=== PATIENT | female | born 1950 | race Caucasian/White ===

== ENCOUNTER → 2017-07-08 | Outpatient (CLI) | payer MEDICARE ==
[~2017-07-08] MED LIST: GADOBUTROL 7.5 MMOL/7.5 ML PFS ONE
== END ==
LOC: CFH 14:24
PROVIDERS: ATTEND Orthopaedic Surgery Foot and Ankle Surgery
DX: M17.12 Unilateral primary osteoarthritis, left knee (principal); R60.0 Localized edema
CPT/HCPCS: 73720; 73721; A9585

== ENCOUNTER → 2017-09-20 | Outpatient (CLI) | payer MEDICARE | LOC: CFH 09:32 → EDSTATUS 10:45 | PROVIDERS: ATTEND Family Medicine | DX: Z12.31 Encounter for screening mammogram for malignant neoplasm of breast (principal) | CPT/HCPCS: 77067 ==

== ENCOUNTER 2019-11-19 11:49 | Emergency (ER) | payer MEDICARE ==
[~2019-11-19] VITALS: Ht 160 cm; Wt 79.8 kg
--- NOTE | 2019-11-19 12:04 | NUR ---
r mid abdpain in side x1 month. this am radiates into groin and r leg. uti 3 wksago, tx w amoxicillin and sx went away. no n/v/d. last bm this am. abd soft to palp. 07/13 current, worse when movingor laying on side. call hernadez/awaiting md. as
--- NOTE | 2019-11-19 12:08 | NUR ---
pt sts fam hx of gall bladder issues and "i vomit at least once a week from food i can't digest". as
--- NOTE | 2019-11-19 12:19 | NUR ---
PA WAS IN ROOM FOR EVAL. UA WALKED TO LAB. LAB AT BEDSIDE. CALL HAI IN REACH.
--- NOTE | 2019-11-19 12:35 | NUR ---
REPORT RECEIVED FROM SANDRA DAUGHERTY.
[2019-11-19 12:37] LABS: BASOPHILS # (AUTO) 0.05 x10^3/uL (0-0.1); BASOPHILS % (AUTO) 1 % (0-1); EOSINOPHILS # (AUTO) 0.07 x10^3/uL (0-0.4); EOSINOPHILS % (AUTO) 1 % (1-7); LYMPHOCYTES # (AUTO) 1.64 x10^3/uL (1-3.4); LYMPHOCYTES % (AUTO) 26 % (22-44); MD NO; MEAN CORPUSCULAR HEMOGLOBIN 30.9 pg (27.0-34.8); MEAN CORPUSCULAR HGB CONC 33.6 g/dL (32.4-35.8); MEAN PLATELET VOLUME 8.7 fL (7.4-10.4); MONOCYTES # (AUTO) 0.47 x10^3/uL (0.2-0.8); MONOCYTES % (AUTO) 8 % (2-9); NEUTROPHILS # (AUTO) 4.04 x10^3/uL (1.8-6.8); NEUTROPHILS % (AUTO) 65 % (42-75); PLATELET COUNT 218 x10^3/uL (130-400); RED BLOOD COUNT 5.08 x10^6/uL (3.82-5.3); RED CELL DISTRIBUTION WIDTH 13.4 % (9.6-15.2)
[2019-11-19 12:38] LABS: MICROSCOPIC NOT IND
[2019-11-19 12:45] LABS: ALANINE AMINOTRANSFERASE 22 U/L (12-78); ALBUMIN 3.5 g/dL (3.4-5.0); ANION GAP 4 mmol/L (5-15); CALCIUM 8.7 mg/dL (8.5-10.1); CHLORIDE 110 mmol/L (98-107)
[2019-11-19 12:48] LABS: ALKALINE PHOSPHATASE 98 U/L (45-117); BILIRUBIN,TOTAL 0.6 mg/dL (0.2-1.0); CREATININE 0.92 mg/dL (0.55-1.02); TOTAL PROTEIN 6.5 g/dL (6.4-8.2)
[2019-11-19 13:35] VITALS: BP 155/61
--- NOTE | 2019-11-19 13:36 | NUR ---
PT RESTING IN [facility]. PT'S AOX4. RESPS EVEN AND UNLABORED. BP/SPO2 MONITORS IN PLACE. CALL LIGHT WITHIN REACH.
--- NOTE | 2019-11-19 15:00 | NUR ---
Patient given discharge instructions and they have confirmed that they understand the instructions. Patient ambulatory with steady gait.
== END 2019-11-19 15:01 | disposition home or self-care (01) ==
LOC: ED 14:51
DX: K38.8 Other specified diseases of appendix (principal)
CPT/HCPCS: 36415; 74176; 80053; 81003; 83690; 85025; 99284

== ENCOUNTER 2019-11-27 11:49 | Day surgery (SDC) | payer MEDICARE ==
[~2019-11-27] VITALS: Ht 160 cm; Wt 77.7 kg
[~2019-11-27 11:49] MED LIST changes: +FENTANYL PF 100 MCG/2ML ONE; -GADOBUTROL 7.5 MMOL/7.5 ML PFS ONE; +MIDAZOLAM 1 MG/ML, 2ML ONE
[2019-11-27] MEDS ORDERED: LACTATED RINGERS 1,000 ML IV SCH (12:08)
[2019-11-27] MEDS ORDERED: BUPIVACAINE/PF-EPI 0.5% 1:200K ONE (12:17)
[2019-11-27] MEDS ORDERED: FENTANYL PF 100 MCG/2ML IV PRN (12:30)
[2019-11-27] MEDS ORDERED: CHLORHEXIDINE 15 ML UDC MM ONE (12:30)
[2019-11-27] MEDS ORDERED: MEPERIDINE/PF 25MG/0.5ML IVPush PRN (12:30)
[2019-11-27] MEDS ORDERED: PLEASE ENTER HEIGHT AND WEIGHT MC SCH (12:30)
[2019-11-27] MEDS ORDERED: PROMETHAZINE 25 MG/ML, 1ML IVPush PRN (12:30)
[2019-11-27] MEDS ORDERED: HYDROcodone/APAP 7.5-325MG/15ML UDC PO PRN (12:30)
[2019-11-27] MEDS ORDERED: morphine SULFATE 10 MG/ML, 1ML IVPush PRN (12:30)
[2019-11-27 12:32] VITALS: BP 134/82
[2019-11-27] MEDS ORDERED: CHLORHEXIDINE 15 ML UDC ONE (12:47)
[2019-11-27] MEDS ORDERED: SCOPOLAMINE 1MG PATCH TD ONE (12:48)
[2019-11-27] MEDS ORDERED: NONE PER PT (12:56)
[2019-11-27] MEDS ORDERED: LUTEIN PO (12:58)
[2019-11-27] MEDS ORDERED: SCOPOLAMINE 1MG PATCH TD SCH (13:00)
[2019-11-27] MEDS ORDERED: SUCCINYLCHOLINE 20 MG/ML, 10ML ONE (13:10)
[2019-11-27] MEDS ORDERED: SUGAMMADEX 200 MG/2 ML IVPush ONE (13:10)
[2019-11-27] MEDS ORDERED: PROPOFOL 10 MG/ML, 100ML IV ONE (13:10)
[2019-11-27] MEDS ORDERED: DEXAMETHASONE 4 MG/ML, 1ML ONE (13:10)
[2019-11-27] MEDS ORDERED: ONDANSETRON 2MG/ML, 2ML ONE (13:10)
[2019-11-27] MEDS ORDERED: ROCURONIUM 10 MG/ML,10ML ONE (13:10)
[2019-11-27] MEDS ORDERED: EPHEDRINE 50 MG/ML, 1ML ONE (13:10)
== END 2019-11-27 16:40 | disposition home or self-care (01) ==
LOC: OUT 11:49
PROVIDERS: ATTEND Surgery
DX: D37.3 Neoplasm of uncertain behavior of appendix (principal); Z79.899 Other long term (current) drug therapy; Z88.0 Allergy status to penicillin; Z83.3 Family history of diabetes mellitus; Z80.9 Family history of malignant neoplasm, unspecified
CPT/HCPCS: 44970; 88304; 93005; J0330; J1100; J2250; J2405; J2704; J3010; J7120

== ENCOUNTER 2020-01-11 19:18 | Emergency (ER) | payer MEDICARE ==
[~2020-01-11] VITALS: Ht 160 cm; Wt 79.6 kg
[~2020-01-11 19:18] MED LIST changes: -FENTANYL PF 100 MCG/2ML ONE; +LUTEIN PO; -MIDAZOLAM 1 MG/ML, 2ML ONE; +NONE PER PT
[2020-01-11 19:25] VITALS: BP 147/90
[2020-01-11] MEDS ORDERED: SODIUM CHLORIDE FLUSH 10ML SYR IVF ONE ×2 (20:00→21:00)
[2020-01-11 20:44] LABS: BASOPHILS # (AUTO) 0.07 x10^3/uL (0-0.1); BASOPHILS % (AUTO) 1 % (0-1); EOSINOPHILS # (AUTO) 0.07 x10^3/uL (0-0.4); EOSINOPHILS % (AUTO) 1 % (1-7); LYMPHOCYTES # (AUTO) 1.95 x10^3/uL (1-3.4); LYMPHOCYTES % (AUTO) 28 % (22-44); MD NO; MEAN CORPUSCULAR HEMOGLOBIN 31.1 pg (27.0-34.8); MEAN CORPUSCULAR HGB CONC 33.9 g/dL (32.4-35.8); MEAN PLATELET VOLUME 8.3 fL (7.4-10.4); MONOCYTES # (AUTO) 0.46 x10^3/uL (0.2-0.8); MONOCYTES % (AUTO) 7 % (2-9); NEUTROPHILS # (AUTO) 4.49 x10^3/uL (1.8-6.8); NEUTROPHILS % (AUTO) 64 % (42-75); PLATELET COUNT 232 x10^3/uL (130-400); RED BLOOD COUNT 5.01 x10^6/uL (3.82-5.3); RED CELL DISTRIBUTION WIDTH 13.3 % (9.6-15.2)
--- NOTE | 2020-01-11 20:53 | NUR ---
PT BACK TO [facility] FROM [facility]. UA COLLECTED, SENT TO LAB. REPORT GIVEN TO JAKUB DAUGHERTY.
--- NOTE | 2020-01-11 20:56 | NUR ---
report rec, pt await ct
[2020-01-11 20:57] LABS: ALANINE AMINOTRANSFERASE 29 U/L (12-78); ALBUMIN 3.5 g/dL (3.4-5.0); ANION GAP 3 mmol/L (5-15); CALCIUM 8.4 mg/dL (8.5-10.1); CHLORIDE 110 mmol/L (98-107); CREATININE 1.15 mg/dL (0.55-1.02)
[2020-01-11 20:59] LABS: ALKALINE PHOSPHATASE 104 U/L (45-117); BILIRUBIN,TOTAL 0.4 mg/dL (0.2-1.0); TOTAL PROTEIN 6.3 g/dL (6.4-8.2)
[2020-01-11 21:06] LABS: MICROSCOPIC INDICATED
[2020-01-11] MEDS ORDERED: OMNIPAQUE 350 MG/ML, 100ML BOTTLE ONE (23:15)
== END 2020-01-11 22:35 | disposition home or self-care (01) ==
LOC: ED 21:53
DX: R10.11 Right upper quadrant pain (principal); G89.29 Other chronic pain; Z90.89 Acquired absence of other organs
CPT/HCPCS: 36415; 74177; 76700; 80053; 81001; 83690; 85025; 87086; 99285; Q9967